=== PATIENT | female | born 1990 | race African-American/Black ===

== ENCOUNTER 2025-02-12 10:32 | Emergency (ER) | payer MEDICAID ==
[~2025-02-12] VITALS: Ht 165.1 cm; Wt 54.4 kg
[2025-02-12 10:44] VITALS: O2SAT 100
[2025-02-12] MEDS: KETOROLAC 30MG/ML VIAL IM ONE (11:52)
[2025-02-12] MEDS ORDERED: IBUP-2030 MT (13:33)
[2025-02-12] MEDS ORDERED: TRAM50TA3 MT (13:33)
[2025-02-12 14:11] VITALS: BP 109/64; PULSE 58; RESP 18; TEMP 37.1; O2SAT 100
== END 2025-02-12 14:21 | disposition home or self-care (01) ==
LOC: ER 10:32
DX: M25.572 Pain in left ankle and joints of left foot (principal); M79.672 Pain in left foot; M79.642 Pain in left hand; M25.532 Pain in left wrist; Z88.0 Allergy status to penicillin
CPT/HCPCS: 99284; 29515; 73110; 73130; 73610; 73630; 96372; J1885; A6449